=== PATIENT | male | born 1970 | race Two or more races ===

== ENCOUNTER 2020-06-14 10:41 | Outpatient (CLI) | payer OTHER | END 2020-06-14 12:00 | disposition home or self-care (01) | LOC: OFIC 805 10:41 | PROVIDERS: ATTEND Otolaryngology Otology & Neurotology | DX: J32.4 Chronic pansinusitis (principal); H66.3X2 Other chronic suppurative otitis media, left ear; H92.02 Otalgia, left ear; J34.89 Other specified disorders of nose and nasal sinuses; R09.81 Nasal congestion ==

== ENCOUNTER → 2020-06-14 | Outpatient (CLI) | payer OTHER | END | disposition home or self-care (01) | LOC: TOM 13:26 | PROVIDERS: ATTEND Otolaryngology Otology & Neurotology | DX: H66.42 Suppurative otitis media, unspecified, left ear (principal) ==

== ENCOUNTER 2020-07-07 11:46 | Outpatient (CLI) | payer OTHER | END 2020-07-07 12:30 | disposition home or self-care (01) | LOC: OFIC 805 11:46 | PROVIDERS: ATTEND Otolaryngology Otology & Neurotology | DX: H71.22 Cholesteatoma of mastoid, left ear (principal); H66.3X2 Other chronic suppurative otitis media, left ear; H92.02 Otalgia, left ear ==

== ENCOUNTER → 2020-07-21 | Outpatient (CLI) | payer OTHER | END | disposition home or self-care (01) | LOC: OFIC 805 14:30 | PROVIDERS: ATTEND Otolaryngology Otology & Neurotology | DX: H66.3X2 Other chronic suppurative otitis media, left ear (principal); H71.22 Cholesteatoma of mastoid, left ear; H92.02 Otalgia, left ear ==

== ENCOUNTER 2020-08-04 09:00 | Day surgery (SDC) | payer OTHER ==
[2020-08-04] MEDS ORDERED: KEFLEX500 MG PO (18:22)
[2020-08-04] MEDS ORDERED: CILOXAN5 ML OTIC (18:24)
[2020-08-04] MEDS ORDERED: ZOFRAN8 MG PO (18:24)
== END 2020-08-04 21:50 | disposition home or self-care (01) ==
LOC: CIR.AMB 09:00
PROVIDERS: ATTEND Otolaryngology Otology & Neurotology
DX: H60.42 Cholesteatoma of left external ear (principal); H66.3X2 Other chronic suppurative otitis media, left ear; Z20.828 Contact with and (suspected) exposure to other viral communicable diseases

== ENCOUNTER → 2020-08-14 | Outpatient (CLI) | payer OTHER ==
[~2020-08-14] MED LIST: CILOXAN5 ML OTIC; KEFLEX500 MG PO; ZOFRAN8 MG PO
== END | disposition home or self-care (01) ==
LOC: OFIC 805 12:30
PROVIDERS: ATTEND Otolaryngology Otology & Neurotology
DX: H71.22 Cholesteatoma of mastoid, left ear (principal); H92.02 Otalgia, left ear; H66.3X2 Other chronic suppurative otitis media, left ear

== ENCOUNTER → 2020-08-23 | Outpatient (CLI) | payer OTHER | END | disposition home or self-care (01) | LOC: OFIC 805 08:40 | PROVIDERS: ATTEND Otolaryngology Otology & Neurotology | DX: H71.22 Cholesteatoma of mastoid, left ear (principal); H92.02 Otalgia, left ear; H66.3X2 Other chronic suppurative otitis media, left ear ==

== ENCOUNTER → 2020-09-04 | Outpatient (CLI) | payer OTHER | END | disposition home or self-care (01) | LOC: OFIC 805 12:30 | PROVIDERS: ATTEND Otolaryngology Otology & Neurotology | DX: H66.3X2 Other chronic suppurative otitis media, left ear (principal); H71.22 Cholesteatoma of mastoid, left ear; H92.02 Otalgia, left ear ==

== ENCOUNTER 2020-10-13 09:51 | Outpatient (CLI) | payer OTHER | END 2020-10-13 11:35 | disposition home or self-care (01) | LOC: OFIC 805 09:51 | PROVIDERS: ATTEND Otolaryngology Otology & Neurotology | DX: H66.3X2 Other chronic suppurative otitis media, left ear (principal); H71.22 Cholesteatoma of mastoid, left ear; H90.12 Conductive hearing loss, unilateral, left ear, with unrestricted hearing on the contralateral side ==

== ENCOUNTER 2020-11-20 11:30 | Outpatient (CLI) | payer OTHER | END 2020-11-20 17:54 | disposition home or self-care (01) | LOC: OFIC 805 11:30 | PROVIDERS: ATTEND Otolaryngology Otology & Neurotology | DX: H66.3X2 Other chronic suppurative otitis media, left ear (principal); H71.22 Cholesteatoma of mastoid, left ear; H90.12 Conductive hearing loss, unilateral, left ear, with unrestricted hearing on the contralateral side ==

== ENCOUNTER 2020-12-07 11:03 | Outpatient (CLI) | payer OTHER | END 2020-12-07 12:34 | disposition home or self-care (01) | LOC: TOM 11:03 | PROVIDERS: ATTEND Otolaryngology Otology & Neurotology | DX: M89.8X8 Other specified disorders of bone, other site (principal); H66.012 Acute suppurative otitis media with spontaneous rupture of ear drum, left ear ==

== ENCOUNTER 2020-12-12 14:12 | Outpatient (CLI) | payer OTHER | END 2020-12-12 15:43 | disposition home or self-care (01) | LOC: OFIC 805 14:12 | PROVIDERS: ATTEND Otolaryngology Otology & Neurotology | DX: H90.12 Conductive hearing loss, unilateral, left ear, with unrestricted hearing on the contralateral side (principal); H71.22 Cholesteatoma of mastoid, left ear ==

== ENCOUNTER 2021-01-01 14:08 | Outpatient (CLI) | payer OTHER | END 2021-01-01 15:50 | disposition home or self-care (01) | LOC: OFIC 805 14:08 | PROVIDERS: ATTEND Otolaryngology Otology & Neurotology | DX: H90.12 Conductive hearing loss, unilateral, left ear, with unrestricted hearing on the contralateral side (principal); H71.22 Cholesteatoma of mastoid, left ear; H66.3X2 Other chronic suppurative otitis media, left ear ==

== ENCOUNTER 2021-01-26 12:26 | Day surgery (SDC) | payer OTHER ==
[2021-01-26] MEDS ORDERED: ZOFRAN8 MG PO (17:52)
[2021-01-26] MEDS ORDERED: CORTISPORIN EAR10 M1 OTIC (17:52)
[2021-01-26] MEDS ORDERED: AMOXICILLIN500 MG PO (17:52)
== END 2021-01-26 21:20 | disposition home or self-care (01) ==
LOC: CIR.AMB 12:26
PROVIDERS: ATTEND Otolaryngology Otology & Neurotology
DX: H71.22 Cholesteatoma of mastoid, left ear (principal); H70.12 Chronic mastoiditis, left ear; H66.3X2 Other chronic suppurative otitis media, left ear; Z20.822 Contact with and (suspected) exposure to COVID-19

== ENCOUNTER → 2021-02-02 | Outpatient (CLI) | payer OTHER ==
[~2021-02-02] MED LIST changes: +AMOXICILLIN500 MG PO; +CORTISPORIN EAR10 M1 OTIC
== END | disposition home or self-care (01) ==
LOC: OFIC 805 08:25
PROVIDERS: ATTEND Otolaryngology Otology & Neurotology
DX: H90.12 Conductive hearing loss, unilateral, left ear, with unrestricted hearing on the contralateral side (principal); H71.22 Cholesteatoma of mastoid, left ear

== ENCOUNTER 2021-02-21 10:59 | Outpatient (CLI) | payer OTHER | END 2021-02-21 12:36 | disposition home or self-care (01) | LOC: OFIC 805 10:59 | PROVIDERS: ATTEND Otolaryngology Otology & Neurotology | DX: H90.12 Conductive hearing loss, unilateral, left ear, with unrestricted hearing on the contralateral side (principal); H71.22 Cholesteatoma of mastoid, left ear; H66.3X2 Other chronic suppurative otitis media, left ear ==

== ENCOUNTER 2022-09-21 09:32 | Emergency (ER) | payer OTHER ==
[~2022-09-21] VITALS: Ht 185.4 cm; Wt 90.7 kg
[2022-09-21] MEDS ORDERED: ALLER-TEC10 MG PO (11:00)
[2022-09-21] MEDS ORDERED: AMOX1TAB5 PO (11:00)
== END 2022-09-21 14:01 | disposition home or self-care (01) ==
LOC: ER 09:32
DX: H00.12 Chalazion right lower eyelid (principal)

== ENCOUNTER 2023-06-05 08:59 | Emergency (ER) | payer OTHER ==
[~2023-06-05] VITALS: Ht 175.3 cm; Wt 77.6 kg
[~2023-06-05 08:59] MED LIST changes: +ALLER-TEC10 MG PO; +AMOX1TAB5 PO
[2023-06-05 11:16] LABS: MEAN CELL VOLUME 92.4 fL (80.0-100.00); RED BLOOD COUNT 4.54 M/uL (4.00-6.00); RED CELL DISTRIBUTION WIDTH 12.4 % (11.5-14.5)
[2023-06-05 11:17] LABS: HEMOGLOBIN 14.7 g/dL (13-16.00); MEAN CORPUSCULAR HEMOGLOBIN 32.3 pg (27.00-32.0); PLATELET COUNT 126 K/uL (150-450)
[2023-06-05 11:55] LABS: CALCIUM 8.4 mg/dL (8.5-10.1); CREATININE SERUM 1.13 mg/dL (0.70-1.30); GFR 68.41; POTASSIUM 3.78 mEq/L (3.5-5.1)
== END 2023-06-05 13:15 | disposition home or self-care (01) ==
LOC: ER 08:59
PROVIDERS: General Practice
DX: U07.1 COVID-19 (principal); J10.1 Influenza due to other identified influenza virus with other respiratory manifestations

== ENCOUNTER 2023-10-13 11:37 | Emergency (ER) | payer OTHER ==
[~2023-10-13] VITALS: Ht 180.3 cm; Wt 78.0 kg
[2023-10-13 15:20] LABS: URINE APPEARANCE Clear; URINE BILIRRUBIN Negative (NEGATIVE); URINE BLOOD Negative; URINE COLOR Yellow; URINE GLUCOSE Negative (NEGATIVE); URINE LEUKOCYTE Negative; URINE NITRATE Negative; URINE PROTEIN Negative (NEGATIVE)
[2023-10-13 15:20] LABS: HEMATOCRIT 43.4 % (39.0-48.0); HEMOGLOBIN 14.7 g/dL (13-16.00); MEAN CELL VOLUME 93.7 fL (80.0-100.00); MEAN CORPUSCULAR HEMOGLOBIN 31.9 pg (27.00-32.0); PLATELET COUNT 190 K/uL (150-450); RED BLOOD COUNT 4.63 M/uL (4.00-6.00); RED CELL DISTRIBUTION WIDTH 12.8 % (11.5-14.5)
[2023-10-13 15:23] LABS: URINE RBC 2.8 uL (0.0-20.8)
[2023-10-13 15:36] LABS: URINE BACTERIA 3.7 uL (0.0-1933)
[2023-10-13 15:49] LABS: ALBUMIN 3.9 gm/dL (3.4-5.0); BILIRUBIN TOTAL 0.68 mg/dL (0.3-1.2); CALCIUM 9.1 mg/dL (8.5-10.1); CREATININE SERUM 1.08 mg/dL (0.70-1.30); GFR 71.8; GLOBULINA 4.2 G/DL (2.4-3.5); POTASSIUM 4.51 mEq/L (3.5-5.1); TOTAL PROTEIN 8.1 gm/dL (6.4-8.2)
[2023-10-13] MEDS ORDERED: CIPRO500 MG PO (17:59)
== END 2023-10-13 19:06 | disposition home or self-care (01) ==
LOC: ER 11:37
PROVIDERS: Nurse Practitioner Family
DX: N43.3 Hydrocele, unspecified (principal)